=== PATIENT | female | born 2000 | race Caucasian/White ===

== ENCOUNTER 2024-10-29 18:54 | Emergency (ER) | payer MEDICAID, OTHER, SELFPAY ==
[~2024-10-29] VITALS: Ht 152.4 cm; Wt 81.6 kg
[2024-10-30 00:11] LABS: BASO # 0.1 10^3/uL (0.0-0.2); BASO % 0.3 % (0.0-1.0); HEMATOCRIT 44.3 % (36.0-47.0); HEMOGLOBIN 13.6 g/dl (12.0-15.5); LYMPH # 0.9 10^3/uL (1.5-5.0); LYMPH % 3.7 % (24.0-44.0); MEAN CORPUSCULAR HEMOGLOBIN 27.3 pg (27.0-33.0); MEAN CORPUSCULAR HGB CONC 30.7 g/dl (32.0-36.5); MONO # 0.6 10^3/uL (0.0-0.8); MONO % 2.5 % (2.0-8.0); NEUTROPHILS # 21.5 10^3/uL (1.5-8.5); NEUTROPHILS % 92.1 % (36.0-66.0); PLATELET COUNT, AUTOMATED 424 10^3/uL (150-450); RED BLOOD COUNT 4.98 10^6/uL (4.00-5.40); WHITE BLOOD COUNT 23.4 10^3/uL (4.0-10.0)
[2024-10-30 02:53] LABS: LIPASE 29 U/L (12-53)
[2024-10-30 02:56] LABS: ALBUMIN 4.7 G/DL (3.2-5.2); ALKALINE PHOSPHATASE 115 U/L (35-104); ALT/SGPT 12 U/L (7.0-40); AST/SGOT 11 U/L (<34); BILIRUBIN,DIRECT 0.1 MG/DL (<0.4); BILIRUBIN,TOTAL 0.4 MG/DL (0.3-1.2); BLOOD UREA NITROGEN 8 MG/DL (9-23); CALCIUM LEVEL 9.9 MG/DL (8.5-10.1); CARBON DIOXIDE LEVEL 15 MMOL/L (20-31); CHLORIDE LEVEL 106 MMOL/L (98-107); CREATININE FOR GFR 0.52 MG/DL (0.55-1.30); GLOMERULAR FILTRATION RATE > 60.0 (>60); GLUCOSE, FASTING 122 MG/DL (60-100); POTASSIUM SERUM 4.9 MMOL/L (3.5-5.1); SODIUM LEVEL 136 MMOL/L (136-145); TOTAL PROTEIN 8.6 G/DL (5.7-8.2)
[2024-10-30] MEDS: METOCLOPRAMIDE INJ 10MG/2ML VIAL IV ONE (02:56)
[2024-10-30 03:09] LABS: HCG, SERUM QUANTITATIVE 3706.9 MIU/ML (<4.2)
[2024-10-30 03:20] LABS: KETONE, URINE MANUAL REFLEX 3+ mg/dL (NEGATIVE); NITRITE, URINE MANUAL RFX NEGATIVE (NEGATIVE); PROTEIN, URINE MANUAL REFLEX 2+ mg/dL (NEGATIVE); UROBILINOGEN, UA MANUAL REFLEX NORMAL (NORMAL)
[2024-10-30 03:27] LABS: HYALINE CAST, URINE RFX NONE SEEN /lpf (0-1); MICROSCOPIC EXAM RFX PERFORMED; MUCUS, URINE REFLEX SMALL AMOUNT (NEGATIVE); SQUAMOUS EPITHELIAL URINE RFX MOD AMOUNT /hpf (SMALL AMT)
[2024-10-30] MEDS ORDERED: PYRI25TA2 PO (03:36)
[2024-10-30] MEDS ORDERED: UNIS25TA3 PO (03:36)
[2024-10-30] MEDS ORDERED: ONDA-282 PO (03:36)
[2024-10-30 04:51] LABS: HEMOGLOBIN A1c 4.7 % (4.0-6.0)
[2024-10-30 05:25] VITALS: BP 162/75; TEMP 98.4; O2SAT 100
== END 2024-10-30 05:30 | disposition home or self-care (01) ==
LOC: M ED 18:54
DX: O21.9 Vomiting of pregnancy, unspecified (principal); Z3A.01 Less than 8 weeks gestation of pregnancy
CPT/HCPCS: 76801; 80048; 80076; 81000; 81015; 82010; 83036; 83690; 84702; 85025; 86850; 86900; 86901; 87486; 87581; 87633; 87798; 96374; 99284; J2765

== ENCOUNTER 2025-05-18 10:05 | Emergency (ER) | payer MEDICAID, OTHER ==
[~2025-05-18] VITALS: Ht 152.4 cm; Wt 62.8 kg
[~2025-05-18 10:05] MED LIST: ONDA-282 PO; PYRI25TA2 PO; UNIS25TA3 PO
[2025-05-18 10:12] VITALS: BP 124/80; TEMP 97.8; O2SAT 100
== END 2025-05-18 10:14 | disposition admitted as inpatient to this hospital (09) ==
LOC: M ED 10:05
DX: Z53.21 Procedure and treatment not carried out due to patient leaving prior to being seen by health care provider (principal)

== ENCOUNTER 2025-05-18 10:18 | Outpatient (CLI) | payer MEDICAID, OTHER ==
[~2025-05-18] VITALS: Ht 152.4 cm; Wt 63.0 kg
[2025-05-18 10:39] VITALS: BP 142/81
[2025-05-18] MEDS: LR 1,000 ML IV ONE (11:22)
[2025-05-18 11:24] VITALS: BP 163/86
[2025-05-18 11:33] LABS: APPEARANCE, URINE HAZY (CLEAR); BACTERIA, URINE AUTO 1+ (NEGATIVE); BILIRUBIN, URINE AUTO NEGATIVE (NEGATIVE); BLOOD, URINE BLOOD 1+ (NEGATIVE); GLUCOSE, URINE (UA) AUTO NEGATIVE (NEGATIVE); KETONE, URINE AUTO 2+ mg/dL (NEGATIVE); LEUKOCYTE ESTERASE, URINE AUTO 3+ (NEGATIVE); MUCUS, URINE SMALL (NEGATIVE); NITRITE, URINE AUTO NEGATIVE (NEGATIVE); PROTEIN, URINE AUTO 2+ mg/dL (NEGATIVE); RBC, URINE AUTO 8 /HPF (0-3); SPECIFIC GRAVITY URINE AUTO 1.019 (1.002-1.035); SQUAMOUS EPITHELIAL CELL UR AU 5 /HPF (0-6); UROBILINOGEN, URINE AUTO 0.2 mg/dL (0.0-2.0); WBC, URINE AUTO 36 /HPF (0-3)
[2025-05-18 11:40] VITALS: BP 119/67
[2025-05-18] MEDS: ONDANSETRON 4MG 2ML VIAL IV PRN (11:40)
[2025-05-18 11:41] LABS: BASO # 0.0 10^3/uL (0.0-0.2); BASO % 0.2 % (0.0-1.0); EOS # 0.0 10^3/uL (0.0-0.5); EOS % 0.0 % (0.0-3.0); LYMPH # 1.1 10^3/uL (1.5-5.0); LYMPH % 6.6 % (24.0-44.0); MONO # 0.8 10^3/uL (0.0-0.8); MONO % 4.7 % (2.0-8.0); NEUTROPHILS # 14.2 10^3/uL (1.5-8.5); NEUTROPHILS % 87.4 % (36.0-66.0); PLATELET COUNT, AUTOMATED 319 10^3/uL (150-450)
[2025-05-18 11:54] VITALS: BP 121/60
[2025-05-18 12:10] LABS: TOTAL PROTEIN,RANDOM URINE 58.2 MG/DL (0.0-14.0)
[2025-05-18 12:12] LABS: AMPHETAMINES URINE REFLEX NEGATIVE (NEGATIVE); BARBITURATES URINE REFLEX NEGATIVE (NEGATIVE); BENZODIAZEPINES URINE REFLEX NEGATIVE (NEGATIVE); COCAINE METABOLITE URINE REFLE NEGATIVE (NEGATIVE); METHADONE URINE REFLEX NEGATIVE (NEGATIVE); OPIATES URINE REFLEX NEGATIVE (NEGATIVE); PHENCYCLIDINE URINE REFLEX NEGATIVE (NEGATIVE)
[2025-05-18 12:23] LABS: LDH LACTATE DEHYDROGENASE 166 U/L (120-246)
[2025-05-18 12:50] LABS: HIV 1&2 SCREEN NEGATIVE (NEGATIVE)
[2025-05-18 12:58] LABS: HEPATITIS C VIRUS ABY INDEX < 0.02 INDEX (<0.8)
[2025-05-18 13:07] LABS: ALT/SGPT 10 U/L (7.0-40); AST/SGOT 14 U/L (<34); CALCIUM LEVEL 9.7 MG/DL (8.5-10.1); CARBON DIOXIDE LEVEL 14 MMOL/L (20-31); CHLORIDE LEVEL 103 MMOL/L (98-107); CREATININE FOR GFR 0.50 MG/DL (0.55-1.30); GLOMERULAR FILTRATION RATE > 90.0 (>60); POTASSIUM SERUM 3.9 MMOL/L (3.5-5.1); SODIUM LEVEL 137 MMOL/L (136-145)
[2025-05-18 13:09] LABS: Trichomonas vaginalis (AMP) NOT DETECTED (NEGATIVE)
[2025-05-18 13:28] VITALS: BP 140/76
[2025-05-18 13:33] LABS: GC DNA AMPLIFICATION NEGATIVE (NEGATIVE)
[2025-05-18 15:06] LABS: CANNABINOIDS URINE REFLEX PENDING CONFIRMATION (NEGATIVE)
[2025-05-25 07:15] LABS: Carboxy THC Conf, MS, UR 90 ng/mL (Cutoff=10)
== END 2025-05-18 14:30 | disposition left against medical advice (07) ==
LOC: M LDO 10:18
PROVIDERS: ATTEND Advanced Practice Midwife
DX: O36.5930 Maternal care for other known or suspected poor fetal growth, third trimester, not applicable or unspecified (principal); O09.33 Supervision of pregnancy with insufficient antenatal care, third trimester; O99.323 Drug use complicating pregnancy, third trimester; O26.893 Other specified pregnancy related conditions, third trimester; O21.8 Other vomiting complicating pregnancy; O13.3 Gestational [pregnancy-induced] hypertension without significant proteinuria, third trimester; F12.20 Cannabis dependence, uncomplicated; M54.50 Low back pain, unspecified; Z3A.33 33 weeks gestation of pregnancy
CPT/HCPCS: 36415; 59025; 76811; 76820; 80053; 80307; 81001; 82247; 82570; 83615; 84156; 84450; 84460; 84550; 85025; 86762; 86780; 86803; 86850; 86900; 86901; 87086; 87340; 87389; 87486; 87581; 87633; 87661; 87798; 87810; 87850; 96374; 96375; G0463; G0480; J2405; J2765

== ENCOUNTER 2025-05-23 14:24 | Emergency (ER) | payer OTHER ==
[~2025-05-23] VITALS: Ht 152.4 cm; Wt 58.6 kg
[2025-05-23 14:32] VITALS: BP 158/98; TEMP 98; O2SAT 98
[2025-05-23] MEDS ORDERED: PRENTAB9 PO (15:05)
[2025-05-24] MEDS ORDERED: PERCOCET PO (13:18)
[2025-05-24] MEDS ORDERED: IBUP80TA PO (13:18)
[2025-05-24] MEDS ORDERED: COLA100C5 PO (13:18)
== END 2025-05-23 14:45 | disposition admitted as inpatient to this hospital (09) ==
LOC: M ED 14:24
DX: Z53.21 Procedure and treatment not carried out due to patient leaving prior to being seen by health care provider (principal)

== ENCOUNTER 2025-05-23 14:47 | Inpatient (IN) | payer OTHER ==
[2025-05-23] VITALS (19 sets, daily range): BP systolic 120–180; BP diastolic 83–106
[~2025-05-23] VITALS: Ht 152.4 cm; Wt 58.8 kg
[2025-05-23] MEDS ORDERED: PRENTAB9 PO (15:05)
[2025-05-23] MEDS ORDERED: HOME MED LIST COMPLETE! XX SCH (15:05)
[2025-05-23 15:53] LABS: PLATELET COUNT, AUTOMATED 318 10^3/uL (150-450)
[2025-05-23 16:02] LABS: TOTAL PROTEIN,RANDOM URINE 133.9 MG/DL (0.0-14.0)
[2025-05-23 16:19] LABS: LDH LACTATE DEHYDROGENASE 171 U/L (120-246)
[2025-05-23 16:20] LABS: ALT/SGPT 28 U/L (7.0-40); AST/SGOT 45 U/L (<34); CREATININE FOR GFR 0.59 MG/DL (0.55-1.30); GLOMERULAR FILTRATION RATE > 90.0 (>60)
[2025-05-23] MEDS: BETAMETHASONE SOLUSPAN 6 MG/ML 5 ML VIAL IM ONE (17:25)
[2025-05-23 21:33] LABS: PLATELET COUNT, AUTOMATED 323 10^3/uL (150-450)
[2025-05-23 21:59] LABS: LDH LACTATE DEHYDROGENASE 145 U/L (120-246)
[2025-05-23 22:01] LABS: ALT/SGPT 32 U/L (7.0-40); AST/SGOT 45 U/L (<34); CALCIUM LEVEL 9.4 MG/DL (8.5-10.1); CARBON DIOXIDE LEVEL 12 MMOL/L (20-31); CHLORIDE LEVEL 103 MMOL/L (98-107); CREATININE FOR GFR 0.54 MG/DL (0.55-1.30); GLOMERULAR FILTRATION RATE > 90.0 (>60); POTASSIUM SERUM 3.0 MMOL/L (3.5-5.1); SODIUM LEVEL 133 MMOL/L (136-145)
[2025-05-23] MEDS: LABETALOL 100 MG/20 ML VIAL IV ONE (22:19)
[2025-05-23] MEDS: ONDANSETRON 4MG 2ML VIAL IV ONE (22:49)
[2025-05-24] VITALS (49 sets, daily range): BP systolic 108–172; BP diastolic 59–106; TEMP 98.2; O2SAT 97–100
[2025-05-24] MEDS: LABETALOL 100 MG/20 ML VIAL IV SCH (03:57)
[2025-05-24] MEDS: LABETALOL 100 MG/20 ML VIAL IV STA ×2 (08:50→11:00)
[2025-05-24] MEDS: BETAMETHASONE SOLUSPAN 6 MG/ML 5 ML VIAL IM ONE (11:12)
[2025-05-24] MEDS ORDERED: PHENYLephrine 500MCG 5ML (100MCG/ML) SYRINGE As Ordered ONE (11:33)
[2025-05-24] MEDS ORDERED: OXYTOCIN 30UNITS IN 0.9% NaCl 500ML IV BAG As Ordered ONE (11:33)
[2025-05-24] MEDS ORDERED: MORPHINE PRES-FREE INJ 10 MG/10 ML VIAL As Ordered ONE (11:33)
[2025-05-24] MEDS ORDERED: dexAMETHasone 4 MG/ML 1 ML VIAL As Ordered ONE (11:35)
[2025-05-24] MEDS ORDERED: ONDANSETRON 4MG 2ML VIAL As Ordered ONE (11:35)
[2025-05-24] MEDS ORDERED: KETOROLAC 30 MG/ML 1 ML VIAL As Ordered ONE (11:35)
[2025-05-24] MEDS ORDERED: ACETAMINOPHEN 1000MG/100ML IV BAG As Ordered ONE (11:36)
[2025-05-24 11:47] LABS: PLATELET COUNT, AUTOMATED 297 10^3/uL (150-450)
[2025-05-24] MEDS ORDERED: CARBOPROST TROMETHAMINE 250 MCG/ML AMP IM PRN (11:50)
[2025-05-24] MEDS ORDERED: OXYTOCIN DRIP 30 UNITS in IV 1 EA IV PRN (11:50)
[2025-05-24] MEDS ORDERED: LIDOCAINE 1% MDV 20 ML VIAL INFIL PRN (11:50)
[2025-05-24] MEDS ORDERED: TRANEXAMIC ACID INJection 1,000 MG in NS 100 ML IV PRN (11:50)
[2025-05-24] MEDS: LR 1,000 ML IV SCH ×2 (12:07→16:20)
[2025-05-24] MEDS: BICITRA 30 ML SOLN UDC PO ONE (12:07)
[2025-05-24] MEDS: ceFAZolin SODIUM 2 GM in DEXTROSE 5% (D5W) ADV/MINI-BAG 50 ML IV ONE (12:07)
[2025-05-24 12:14] LABS: LDH LACTATE DEHYDROGENASE 202 U/L (120-246)
[2025-05-24 12:26] LABS: ALT/SGPT 38 U/L (7.0-40); AST/SGOT 53 U/L (<34); CALCIUM LEVEL 9.4 MG/DL (8.5-10.1); CARBON DIOXIDE LEVEL < 10.0 MMOL/L (20-31); CHLORIDE LEVEL 100 MMOL/L (98-107); CREATININE FOR GFR 0.55 MG/DL (0.55-1.30); GLOMERULAR FILTRATION RATE > 90.0 (>60); POTASSIUM SERUM 3.3 MMOL/L (3.5-5.1); SODIUM LEVEL 131 MMOL/L (136-145)
[2025-05-24] MEDS: AZITHROMYCIN INJ 500 MG, VIAL MATE ADAPTER 1 EACH in NS 250 ML IV ONE (12:30)
[2025-05-24 12:54] LABS: CORD GAS ABE V -12.3; CORD GAS HCO3 V 15.3 MMOL/L; CORD GAS O2 SAT V 33.9 %; CORD GAS PCO2 V 41.1 mmHg; CORD GAS PH V 7.19 UNITS; CORD GAS PO2 V 18.4 mmHg; CORD GAS SBC V 13.8 MMOL/L; CORD GAS TCO2 V 16.6 MMOL/L
[2025-05-24 12:55] LABS: CORD GAS ABE A -12.6; CORD GAS HCO3 A 16.1 MMOL/L; CORD GAS O2 SAT A 22.6 %; CORD GAS PCO2 A 47.4 mmHg; CORD GAS PH A 7.15 UNITS; CORD GAS PO2 A 14.8 mmHg; CORD GAS SBC A 13.4 MMOL/L; CORD GAS TCO2 A 17.6 MMOL/L
[2025-05-24] MEDS ORDERED: SIMETHICONE 80MG CHEW TAB PO PRN (13:10)
[2025-05-24] MEDS ORDERED: CALCIUM CARBONATE 500 MG CHEW U/D PO PRN (13:10)
[2025-05-24] MEDS ORDERED: RHOGAM 300MCG (1500IU) INJ IM SCH (13:10)
[2025-05-24] MEDS ORDERED: ANUSOL HC CREAM 30 GM TOP PRN (13:10)
[2025-05-24] MEDS ORDERED: PERCOCET 5MG/325MG TAB PO PRN ×2 (13:10)
[2025-05-24] MEDS ORDERED: MORPHINE 4 MG/ML 1 ML VIAL IV PRN (13:10)
[2025-05-24] MEDS ORDERED: ONDANSETRON 4MG 2ML VIAL IV PRN (13:10)
[2025-05-24] MEDS ORDERED: IBUP80TA PO (13:18)
[2025-05-24] MEDS ORDERED: PERCOCET PO (13:18)
[2025-05-24] MEDS ORDERED: COLA100C5 PO (13:18)
[2025-05-24] MEDS: OXYTOCIN DRIP 30 UNITS in IV 1 EA IV SCH (13:58)
[2025-05-24] MEDS: KETOROLAC 30 MG/ML 1 ML VIAL IV SCH (18:14)
[2025-05-24] MEDS: DOCUSATE SODIUM 100 MG CAPSULE PO SCH (20:18)
[2025-05-25 02:05] VITALS: BP 119/71; O2SAT 96
[2025-05-25 06:05] VITALS: BP 131/72; O2SAT 98
[2025-05-25 08:37] LABS: PLATELET COUNT, AUTOMATED 259 10^3/uL (150-450)
[2025-05-25] MEDS: PRENATAL VITAMINS CHEWABLE TABLET PO SCH (11:16)
[2025-05-25] MEDS: IBUPROFEN 800 MG TAB PO SCH (15:33)
[2025-05-25 18:00] VITALS: BP 133/72; O2SAT 98
[2025-05-25] MEDS: ACETAMINOPHEN 500 MG TAB PO PRN (19:52)
[2025-05-25 22:00] VITALS: BP 117/67; O2SAT 97
[2025-05-26 02:00] VITALS: BP 106/55; O2SAT 99
[2025-05-26 06:00] VITALS: BP 119/58; O2SAT 98
[2025-05-26] MEDS ORDERED: MEASLES,MUMPS,RUBELLA VACCINE INJ (MMR-II) SC.IMMUN ONE (09:00)
[2025-05-26 10:00] VITALS: BP 138/72; O2SAT 100
[2025-05-26] MEDS: FLUZONE VACCINE TRIVALENT PF(25-26) 0.5ML SYRINGE IM.IMMUN ONE (10:24)
[2025-05-26] MEDS: TETANUS/DIPHTH/ACEL. PERTUSSIS 0.5 ML SYR IM.IMMUN ONE (10:25)
== END 2025-05-26 13:30 | disposition home or self-care (01) | DRG 540 ==
LOC: M LDO 14:47 → M LDI 16:52 → M OBS 05-24 15:30
PROVIDERS: ADMIT Obstetrics & Gynecology; ATTEND Obstetrics & Gynecology
PROC: 10D00Z1 Extraction of Products of Conception, Low, Open Approach (ICD-10-PCS; principal; 2025-05-24 12:02)
DX: O14.14 Severe pre-eclampsia complicating childbirth (principal); O99.324 Drug use complicating childbirth; Z37.0 Single live birth; Z3A.34 34 weeks gestation of pregnancy; O32.1XX0 Maternal care for breech presentation, not applicable or unspecified; O36.5990 Maternal care for other known or suspected poor fetal growth, unspecified trimester, not applicable or unspecified; F12.90 Cannabis use, unspecified, uncomplicated